=== PATIENT | female | born 1950 | race Caucasian/White ===

== ENCOUNTER → 2016-08-25 | Outpatient (REF) | payer MEDICARE ==
[2016-08-25 15:50] LABS: BASOPHILS % (AUTO) 1 % (0-2); EOSINOPHILS # (AUTO) 0.2 10^3uL; EOSINOPHILS % (AUTO) 2 % (0-4); LYMPHOCYTES # (AUTO) 1.3 X10^3; MEAN CORPUSCULAR HEMOGLOBIN 28.2 PG (26.0-34.0); MEAN CORPUSCULAR HGB CONC 34.5 g/dL (31.0-37.0); MEAN CORPUSCULAR VOLUME 82 FL (80-100); MEAN PLATELET VOLUME 12.2 FL (6.0-9.5); MONOCYTES # (AUTO) 0.6 X10^3; MONOCYTES % (AUTO) 7 % (3-11); NEUTROPHILS # (AUTO) 6.4 X10^3; NEUTROPHILS % (AUTO) 75 % (51-67); PLATELET COUNT 206 10^3uL (150-450); WHITE BLOOD COUNT 8.41 10^3uL (4.0-11.0)
[2016-08-25 15:55] LABS: CALCULATED IONIZED CALCIUM 4.3 mg/dL (3.8-4.6); TOTAL PROTEIN 6.8 g/dL (6.4-8.5)
[2016-08-25 16:14] LABS: BILIRUBIN,URINE Negative (Negative); CLARITY,URINE Cloudy; GLUCOSE, URINE (UA) 3+ (Negative); LEUKOCYTE ESTERASE ,URINE 1+ (Negative); PH,URINE 5.5 (5.0 - 8.0); UROBILINOGEN,URINE 0.2 mg/dL (0.2-1.0)
[2016-08-25 16:16] LABS: COLOR,URINE Dark Yellow
[2016-08-25 16:38] LABS: RBC,URINE 50-100 /HPF; URINE CENTRIFUGED VOLUME 12 mL
== END ==
LOC: LAB 15:14
PROVIDERS: ATTEND Family Medicine
DX: E11.9 Type 2 diabetes mellitus without complications (principal); E03.8 Other specified hypothyroidism; I48.2 Chronic atrial fibrillation; F33.1 Major depressive disorder, recurrent, moderate; Z51.81 Encounter for therapeutic drug level monitoring
CPT/HCPCS: 80053; 80061; 80162; 81003; 81015; 83036; 84443; 85025; 85610; 87088

== ENCOUNTER → 2016-09-08 | Outpatient (REF) | payer MEDICARE | LOC: LAB 16:59 | PROVIDERS: ATTEND Family Medicine | DX: I48.2 Chronic atrial fibrillation (principal) | CPT/HCPCS: 85610 ==

== ENCOUNTER → 2016-10-27 | Outpatient (CLI) | payer MEDICARE ==
[2016-10-27 16:07] LABS: ALBUMIN 4.1 g/dL (3.4-5.0); ANION GAP 16.2 MEQ/L (3-15); CALCULATED IONIZED CALCIUM 4.2 mg/dL (3.8-4.6); TOTAL PROTEIN 7.5 g/dL (6.4-8.5)
== END ==
LOC: LAB 15:13
PROVIDERS: ATTEND Family Medicine
DX: I48.2 Chronic atrial fibrillation (principal)
CPT/HCPCS: 36415; 80053; 80162; 85610

== ENCOUNTER → 2016-11-27 | Outpatient (REF) | payer MEDICARE ==
[2016-11-27 16:04] LABS: BASOPHILS % (AUTO) 0 % (0-2); EOSINOPHILS # (AUTO) 0.2 10^3uL; EOSINOPHILS % (AUTO) 2 % (0-4); LYMPHOCYTES # (AUTO) 1.1 X10^3; MEAN CORPUSCULAR HEMOGLOBIN 28.8 PG (26.0-34.0); MEAN CORPUSCULAR HGB CONC 34.3 g/dL (31.0-37.0); MEAN CORPUSCULAR VOLUME 84 FL (80-100); MEAN PLATELET VOLUME 11.6 FL (6.0-9.5); MONOCYTES # (AUTO) 0.5 X10^3; MONOCYTES % (AUTO) 5 % (3-11); NEUTROPHILS # (AUTO) 7.9 X10^3; NEUTROPHILS % (AUTO) 81 % (51-67); PLATELET COUNT 170 10^3uL (150-450); WHITE BLOOD COUNT 9.74 10^3uL (4.0-11.0)
[2016-11-27 16:18] LABS: ANION GAP 17.5 MEQ/L (3-15)
== END ==
LOC: LAB 15:47
PROVIDERS: ATTEND Family Medicine
DX: Z51.81 Encounter for therapeutic drug level monitoring (principal); E11.9 Type 2 diabetes mellitus without complications; I48.2 Chronic atrial fibrillation; R71.0 Precipitous drop in hematocrit
CPT/HCPCS: 80048; 80162; 82607; 82728; 82746; 83036; 83540; 83550; 85025; 85610

== ENCOUNTER → 2016-12-23 | Outpatient (REF) | payer MEDICARE | LOC: LAB 15:18 | PROVIDERS: ATTEND Family Medicine | DX: D64.9 Anemia, unspecified (principal) | CPT/HCPCS: 85014; 85018 ==

== ENCOUNTER → 2016-12-28 | Outpatient (CLI) | payer MEDICARE ==
--- NOTE | 2016-12-28 17:57 | Diagnostic Imaging Report ---
INDICATION: Peripheral vascular disease and diabetes and foot ulceration. TECHNIQUE: Bilateral lower extremity arterial Doppler study is performed in the routine fashion with color flow Doppler and waveform analysis. FINDINGS: On the right side, the ankle-brachial index was 1.04. On the left side, the index was 1.04 as well. There is triphasic flow on the right side in the common femoral artery and [id number] SFA and profunda. There is biphasic flow in the distal SFA and popliteal artery and tibial vessels. There are no focal high-velocity jets or occluded segments on the right side. On the left side, flow is triphasic in the common femoral artery and profunda and SFA and biphasic in the popliteal artery and tibial vessels. There are scattered areas of plaquing but no evidence of occluded segment or high-grade stenosis. IMPRESSION: Scattered areas of plaquing are present without evidence of occluded segment or significant stenosis. Dictated by: Dictated on workstation # [id number]
== END ==
LOC: RAD 12:28
PROVIDERS: ATTEND Surgery
DX: E11.9 Type 2 diabetes mellitus without complications (principal); I73.9 Peripheral vascular disease, unspecified
CPT/HCPCS: 93925

== ENCOUNTER 2017-01-15 13:00 | Outpatient (RCR) | payer MEDICARE ==
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
== END 2017-01-18 10:33 | disposition home or self-care (01) ==
LOC: PT 13:00
PROVIDERS: ATTEND Surgery
DX: L97.519 Non-pressure chronic ulcer of other part of right foot with unspecified severity (principal); L97.529 Non-pressure chronic ulcer of other part of left foot with unspecified severity; E11.621 Type 2 diabetes mellitus with foot ulcer; E11.42 Type 2 diabetes mellitus with diabetic polyneuropathy; Z79.4 Long term (current) use of insulin
CPT/HCPCS: 97163; 97597; 97598; G8990; G8991